=== PATIENT | male | born 1955 | race Two or more races ===

== ENCOUNTER 2024-04-12 23:02 | Emergency (ER) | payer MEDICARE, OTHER ==
[~2024-04-12] VITALS: Ht 185.4 cm; Wt 95.0 kg
[2024-04-12 23:21] VITALS: TEMP 98.4
[2024-04-12] MEDS ORDERED: ACETAMINOPHEN 500 MG TABLET PO ONE (23:45)
[2024-04-13] MEDS: HYDROCODONE/ACETAMINOPHEN 10-325 MG TABLET PO ONE (00:18)
[2024-04-13] MEDS: BACITRACIN 0.9 GM PACKET OINTMENT TP ONE (00:19)
[2024-04-13] MEDS: PERTUSS(ACELL),DIPH,TET/PF 0.5 ML SYRINGE [ADULT] IM. ONE (00:20)
[2024-04-13 02:32] LABS: BASOPHILS % (AUTO) 1.1 % (0.0-2.0); EOSINOPHILS % (AUTO) 2.4 % (1.0-6.0); HEMATOCRIT 32.2 % (41-53); HEMOGLOBIN 10.3 g/dL (13.5-17.5); LYMPHOCYTES # (AUTO) 1.6 K/uL (1.0-4.8); LYMPHOCYTES % (AUTO) 28.2 % (22.0-44.0); MEAN CORPUSCULAR HEMOGLOBIN 26.8 pg (26.0-34.0); MEAN CORPUSCULAR VOLUME 84 fL (80-100); MONOCYTES # (AUTO) 0.6 K/uL (0.1-1.0); MONOCYTES % (AUTO) 9.9 % (2.0-9.0); NEUTROPHILS # (AUTO) 3.4 K/uL (1.8-7.7); NEUTROPHILS % (AUTO) 58.4 % (40.0-70.0); PLATELET COUNT (AUTO) 200 K/uL (150-450); RED BLOOD CELL COUNT(AUTO) 3.84 MIL/uL (4.50-5.90); RED CELL DISTRIBUTION WIDTH 18.2 % (11.5-14.5); WHITE BLOOD COUNT (AUTO) 5.8 K/uL (4.5-11.0)
[2024-04-13 02:43] LABS: CALCIUM, TOTAL 9.2 mg/dL (8.8-10.5); CREATININE 1.25 mg/dL (0.60-1.30); POTASSIUM 4.1 mmol/L (3.5-5.1)
[2024-04-13 02:44] VITALS: BP 126/73; PULSE 51; RESP 16
[2024-04-13 02:53] LABS: TROPONIN I-HIGH SENSITIVITY 11 ng/L (<76)
== END 2024-04-13 04:03 | disposition home or self-care (01) ==
LOC: EMS 23:02
DX: S00.03XA Contusion of scalp, initial encounter (principal); S50.819A Abrasion of unspecified forearm, initial encounter; X58.XXXA Exposure to other specified factors, initial encounter; Y93.89 Activity, other specified; Y92.89 Other specified places as the place of occurrence of the external cause; Y99.8 Other external cause status
CPT/HCPCS: 70450; 80048; 84484; 85025; 90471; 90715; 93005; 99285

== ENCOUNTER 2024-07-17 16:09 | Inpatient (IN) | payer MEDICARE, OTHER ==
[~2024-07-17] VITALS: Ht 193 cm; Wt 111.6 kg
[2024-07-17] MEDS ORDERED: SODIUM CHLORIDE 0.9% 100 ML ONE ×3 (16:39→17:18)
[2024-07-17] MEDS ORDERED: IOHEXOL 350 MG/ML 100 ML VIAL ONE ×3 (16:39→17:18)
[2024-07-17 16:58] LABS: HEMATOCRIT 26.9 % (41-53); HEMOGLOBIN 8.4 g/dL (13.5-17.5); MEAN CORPUSCULAR HEMOGLOBIN 24.2 pg (26.0-34.0); MEAN CORPUSCULAR HGB CONC 31.2 G/dL (31.0-37.0); MEAN CORPUSCULAR VOLUME 78 fL (80-100); PLATELET COUNT (AUTO) 258 K/uL (150-450); RED BLOOD CELL COUNT(AUTO) 3.46 MIL/uL (4.50-5.90); RED CELL DISTRIBUTION WIDTH 20.2 % (11.5-14.5); WHITE BLOOD COUNT (AUTO) 3.8 K/uL (4.5-11.0)
[2024-07-17 17:14] LABS: PROTHROMBIN TIME 10.5 SEC (9.4-11.6)
[2024-07-17 17:18] LABS: TROPONIN I-HIGH SENSITIVITY 10 ng/L (<76)
[2024-07-17 17:20] LABS: ANION GAP 16 mmol/L (8-16); CARBON DIOXIDE 21 mmol/L (22-29); CHLORIDE 104 mmol/L (98-107); CREATININE 0.96 mg/dL (0.60-1.30); GLOMERULAR FILTR. RATE CALC > 60 mL/min (>60); GLUCOSE,RANDOM 73 mg/dL (70-110); POTASSIUM 4.1 mmol/L (3.5-5.1); SODIUM SERUM 141 mmol/L (136-145); UREA NITROGEN, BLOOD 17 mg/dL (7-18)
[2024-07-17 17:24] LABS: ALANINE AMINOTRANSFERASE 101 U/L (12-78); ALBUMIN 3.5 g/dL (3.4-5.0); ALKALINE PHOSPHATASE 91 U/L (46-116); ASPARTATE AMINOTRANSFERASE 98 U/L (15-37); BILIRUBIN,TOTAL 0.4 mg/dL (0.1-1.0); TOTAL PROTEIN, SERUM 7.3 g/dL (6.4-8.2)
[2024-07-17 17:54] LABS: BAND NEUTROPHILS % (MANUAL) 1 % (0-5); BASOPHILS % (MANUAL) 1 % (0-2); EOSINOPHILS % (MANUAL) 3 % (1-6); LYMPHOCYTES % (MANUAL) 44 % (22-44); MONOCYTES % (MANUAL) 10 % (2-9); RBC MORPHOLOGY COMMENT ABNORMAL RBC MORPH; SEGMENTED NEUTROPHILS % 41 % (40-70); TOTAL CELLS COUNTED 100
[2024-07-17] MEDS: LORazepam 2 MG/ML VIAL IVP ONE (18:42)
[2024-07-17] MEDS: LevETIRAcetam 1,000 MG in DEXTROSE 5%-WATER 100 ML IV ONE (18:45)
[2024-07-17] MEDS ORDERED: HYDROCODONE/ACETAMINOPHEN 5-325 MG TABLET PO PRN (21:00)
[2024-07-17] MEDS ORDERED: ZOLPIDEM TARTRATE 5 MG TABLET PO PRN (21:00)
[2024-07-17] MEDS ORDERED: ACETAMINOPHEN 325 MG TABLET PO PRN (21:00)
[2024-07-17] MEDS ORDERED: MAGNESIUM HYDROXIDE SUSPENSION 30 ML UDCUP PO PRN (21:00)
[2024-07-17] MEDS ORDERED: ONDANSETRON HCL 4 MG/2 ML VIAL IVP PRN (21:00)
[2024-07-17] MEDS: DOCUSATE SODIUM 100 MG CAPSULE PO SCH (21:00)
[2024-07-17] MEDS ORDERED: BISACODYL 10 MG RECTAL RECTAL SUPPOSITORY PR PRN (21:00)
[2024-07-17] MEDS ORDERED: MORPHINE SULFATE 2 MG/ML SYRINGE IVP PRN (21:00)
[2024-07-17 23:40] LABS: TROPONIN I-HIGH SENSITIVITY 11 ng/L (<76)
[2024-07-18 00:52] VITALS: BP 108/53; PULSE 60; RESP 18; TEMP 97; O2SAT 98
[2024-07-18 05:17] VITALS: BP 110/60; PULSE 58; RESP 18; TEMP 98; O2SAT 98
[2024-07-18 07:44] LABS: TROPONIN I-HIGH SENSITIVITY 10 ng/L (<76)
[2024-07-18 08:31] VITALS: BP 160/76; PULSE 68; RESP 19; TEMP 98.1; O2SAT 97
[2024-07-18] MEDS: PANTOPRAZOLE SODIUM 40 MG DR TABLET PO SCH (08:31)
[2024-07-18 11:31] VITALS: BP 152/80; PULSE 82; RESP 20; TEMP 98.3; O2SAT 98
[2024-07-18] MEDS ORDERED: LORazepam 2 MG/ML VIAL IVP PRN (13:00)
[2024-07-18 15:04] VITALS: BP 148/76; PULSE 80; RESP 18; TEMP 98.1; O2SAT 97
== END 2024-07-18 15:50 | disposition left against medical advice (07) | DRG 56 ==
LOC: EMS 16:09 → EDH 21:00 → 5N 22:57
PROVIDERS: ADMIT Internal Medicine; ATTEND Internal Medicine
DX: G31.2 Degeneration of nervous system due to alcohol (principal); G92.8 Other toxic encephalopathy; G45.9 Transient cerebral ischemic attack, unspecified; F10.129 Alcohol abuse with intoxication, unspecified; Z53.21 Procedure and treatment not carried out due to patient leaving prior to being seen by health care provider; D64.9 Anemia, unspecified; Z86.73 Personal history of transient ischemic attack (TIA), and cerebral infarction without residual deficits; R74.01 Elevation of levels of liver transaminase levels; T51.0X1A Toxic effect of ethanol, accidental (unintentional), initial encounter
CPT/HCPCS: 71045; 80053; 82948; 84484; 85025; 85610; 85730; 93005; 99285; G0480; J0712; J2060; J7050; J7060; 36415-L1; 36415-TC; 70450; 70450-TC

== ENCOUNTER 2024-09-11 20:04 | Emergency (ER) | payer MEDICARE, OTHER ==
[~2024-09-11] VITALS: Ht 188 cm; Wt 109.1 kg
[2024-09-11 20:12] VITALS: TEMP 98.7
[2024-09-11] MEDS ORDERED: BACITRACIN 0.9 GM PACKET OINTMENT TP ONE (22:45)
[2024-09-12 07:26] VITALS: BP 164/85; PULSE 75; RESP 18; O2SAT 98
== END 2024-09-12 08:25 | disposition admitted as inpatient to this hospital (09) ==
LOC: EMS 20:04
DX: S60.512A Abrasion of left hand, initial encounter (principal); G93.40 Encephalopathy, unspecified; Z86.73 Personal history of transient ischemic attack (TIA), and cerebral infarction without residual deficits; Z86.79 Personal history of other diseases of the circulatory system; Z98.890 Other specified postprocedural states; W22.01XA Walked into wall, initial encounter; Y93.89 Activity, other specified; Y92.89 Other specified places as the place of occurrence of the external cause; Y99.8 Other external cause status
CPT/HCPCS: 71045; 93005; 99285